=== PATIENT | male | born 1980 | race Caucasian/White ===

== ENCOUNTER 2022-10-19 11:52 | Emergency (ER) | payer MEDICAID, SELFPAY ==
[2022-10-19 11:58] VITALS: BP 136/84; PULSE 67; RESP 18; TEMP 36.6; O2SAT 97; BMI 40.7
--- NOTE | 2022-10-19 12:50 | CRLHL7_ITS ---
For Patients: As a result of the Century Cures Act, medical imaging exams and procedure reports are released immediately into your electronic medical record. You may view this report before your referring provider. If you have questions, please contact your health care provider. Indication: Anterior knee pain Comparison: None available. Technique: Standing AP, lateral, and sunrise views of the left knee were obtained Findings: There is no displaced fracture or dislocation. There is mild loss of medial compartmental joint space with minimal tibial spine spurring. The soft tissues are unremarkable. Impression: Mild tricompartmental degenerative changes worse in the medial compartment. Otherwise, no evidence of acute osseous abnormality. Dictated by Gustavo Scruggs MD @ 10/19/2022 2:05:09 PM (Electronically Signed)
--- NOTE | 2022-10-19 12:51 | ED.GENADULT ---
HPI - General Adult General Chief complaint: Extremity Pain/Injury, Lower Stated complaint: Injured LT knee Time Seen by Provider: 10/19/22 12:02 History of Present Illness HPI narrative: This 42-year-old male comes in reporting left knee pain. He states that he has a history of knee pain and had his ACL repaired on the right knee many years ago. He also reports some tendinitis in his Achilles tendons related to fluoroquinolones use in the past. He does not report any particular injury event or strenuous activity to bring on this pain. He states that he awoke for 5 days ago after sleeping on his side and had rather sudden onset of severe pain in the left knee. He does not report any instability or catching or locking. He reports pain especially when ambulating down stairs. Related Data Home Medications Medication Instructions Recorded Confirmed ferrous sulfate 325 mg (65 mg 325 mg PO DAILY 10/19/22 10/19/22 iron) tablet (FeroSul) gabapentin 100 mg capsule 100 mg PO DAILY 10/19/22 10/19/22 metoprolol succinate 100 mg 100 mg PO DAILY 10/19/22 10/19/22 tablet,extended release 24 hr rizatriptan 5 mg tablet 5 mg PO Q2H PRN migraine 10/19/22 10/19/22 Previous Rx's Medication Instructions Recorded hydrocodone 5 mg-acetaminophen 325 1 tab PO Q4-6H PRN pain #10 tabs 10/19/22 mg tablet Allergies Allergy/AdvReac Type Severity Reaction Status Date / Time banana Allergy Mild Anaphylaxis Verified 10/19/22 12:09 levofloxacin [From Levaquin] Allergy Mild tendon Verified 10/19/22 12:09 disinageration mold Allergy Mild Anaphylaxis Verified 10/19/22 12:09 Penicillins Allergy Mild Anaphylaxis Verified 10/19/22 12:09 Review of Systems Status of ROS: Reports: 10 or more systems reviewed and unremarkable except as noted in History and below Narrative: Constitutional: No fevers, no weight gain or loss. Eyes: No discharge. No vision changes. HENT: No congestion, no sore throat, no ear pain. Cardiovascular: No chest pain, no palpitations. Respiratory: No shortness of breath, no wheezes, no cough. Gastrointestinal: No abdominal pain, no vomiting, no diarrhea. Genitourinary: No dysuria, no hematuria. Musculoskeletal: Normal range of motion. Left knee pain as described above. Skin: No rashes, no pruritis. Neurological: No dizziness, weakness, sensory change, speech change. Endo/Heme/Allergies: No bruising or bleeding. No polydipsia. Pysch: no suicidality, no anxiety, no insomnia. All other systems reviewed and are negative. Exam Narrative: Exam Narrative: Constitutional: Well-developed, well-nourished, no acute distress. HEENT: Normocephalic, atraumatic. Neck: Normal range of motion. Nontender. Supple. Heart: Regular. No murmurs. Normal rate. Intact distal pulses. Lungs: Clear to auscultation. No chest discomfort. No wheezes, rhonchi, or rales. Abdomen: Normal bowel sounds. Nontender. No rebound tenderness. Genitalia: Deferred. Back: No midline tenderness. Normal range of motion. Extremities: Normal range of motion. Left knee shows no sign of ligament instability. Marshall's test and Jyoti's test are negative. He has tenderness when moving his patella when fully extended and relaxed. He reports more exquisite tenderness when palpating over the patella tendon. Skin: Intact. No rash. Warm. No erythema or pallor. Neurologic: No altered sensation. No weakness. Alert and oriented. Psychiatric: No suicidality. No anxiety or depression. No insomnia. Nursing notes and vitals signs are reviewed. Const: Vital Signs, click to edit/add: Vital Signs - 24 hr 10/19/22 11:58 Temperature 97.9 F Pulse Rate [Right Pulse Oximeter] 67 Respiratory Rate 18 Blood Pressure [Ri ght Upper Arm] 136/84 Pulse Oximetry 97 Oxygen Delivery Me thod Room Air Course Vital Signs Vital signs: Initial Vital Signs Temperature 97.9 F 10/19/22 11:58 Temperature Source Temporal Artery Scan 10/19/22 11:58 Pulse Rate 67 10/19/22 11:58 Respiratory Rate 18 10/19/22 11:58 Blood Pressure 136/84 10/19/22 11:58 Blood Pressure Mean 101 10/19/22 11:58 Blood Pressure Position Sitting 10/19/22 11:58 Pulse Oximetry 97 10/19/22 11:58 Oxygen Delivery Method Room Air 10/19/22 11:58 Vital Signs Temperature 97.9 F 10/19/22 11:58 Pulse Rate 67 10/19/22 11:58 Respiratory Rate 18 10/19/22 11:58 Blood Pressure 136/84 10/19/22 11:58 Pulse Oximetry 97 10/19/22 11:58 Oxygen Delivery Method Room Air 10/19/22 11:58 Temperature 97.9 F 10/19/22 11:58 Pulse Rate 67 10/19/22 11:58 Respiratory Rate 18 10/19/22 11:58 Blood Pressure 136/84 10/19/22 11:58 Pulse Oximetry 97 10/19/22 11:58 Oxygen Delivery Method Room Air 10/19/22 11:58 Medical Decision Making MDM Narrative Medical decision making narrative: This patient comes in with pain in his left knee. There was no particular injury event however he does have history of tendinopathy that he attributes to prior use of fluoroquinolones. His knee exam is normal regarding ligament stability and no sign of effusion. His range of motion is intact. He is able to ambulate normally. He does complain of pain in the anterior knee and also just medial to the patella. He has tenderness when I palpate lightly over the patella tendon. X-ray imaging is obtained and shows no acute findings. There is some mild degenerative change. There is no calcification noted of the patella tendon or the quadriceps tendon. I recommended the patient follow-up with orthopedic clinic for further evaluation and treatment. Arrangements are made for this appointment by registration staff. Patient did receive a few tablets of [place] as he states that he is not to be taking NSAIDs or steroids. Imaging Data XR L Knee: Radiologist's impression: Mild tricompartmental degenerative changes worse in the medial compartment. Otherwise, no evidence of acute osseous abnormality. Discharge Plan Discharge Clinical Impression: Anterior knee pain Patient Disposition: Home, Self-Care Condition: Unchanged Additional Instructions: Activity as tolerated. Take medication as needed and directed. Follow up with orthopedic clinic as scheduled. Prescriptions: New hydrocodone-acetaminophen 5-325 mg tablet 1 tab PO Q4-6H PRN (Reason: pain) Qty: 10 0RF No Action metoprolol succinate 100 mg tablet extended release 24 hr 100 mg PO DAILY gabapentin 100 mg capsule 100 mg PO DAILY ferrous sulfate [FeroSul] 325 mg (65 mg iron) tablet 325 mg PO DAILY rizatriptan 5 mg tablet 5 mg PO Q2H PRN (Reason: migraine) Follow Up/Referrals: PRATEEK ROBERTS DO [Primary Care Provider] - Stand Alone Forms: MyHealth Info Instructions
== END 2022-10-19 14:35 | disposition home or self-care (01) ==
PROVIDERS: Emergency Provider Emergency Medicine Emergency Medical Services; PCP Student in an Organized Health Care Education/Training Program
DX: M25.562 Pain in left knee (principal)
CPT/HCPCS: 73562; 99283; 99284

== ENCOUNTER 2023-03-03 11:15 | Outpatient (RCR) | payer MEDICAID, SELFPAY ==
--- NOTE | 2022-11-06 14:19 | PT.OPEX ---
PT [place] Outpatient Eval PT [facility] Outpatient Eval Start: 11/06/22 08:52 Freq: Status: Active Protocol: Document 11/06/22 08:52 HN (Rec: 11/06/22 14:09 HN [id number]) E-signed By Mindi Feldman DPT Physical Therapy Outpatient Evaluation Insurance Information Recert Due Date 02/03/23 Insurance Name Medicaid Insurance Information/Comments [facility] Medicaid Plan Medical Diagnosis M76. 52 for Patellar tendinitis, left knee [id number] primary osteoarthritis, left knee M22. 8X2 Other disorders of patella, left knee- Treating Diagnosis M25. 562 Pain in left knee LCL sprain/patellofemoral pain syndrome Referring MD Nilesh Henriquez MD Subjective Subjective Patient is a 42 year old male with left knee pain that began patient reports 3 week ago while sleeping. Patient reports pain was intense and sharp to start, went ED. Patient reports pain has stayed the same since initial onset not improved or worsened . Patient reports knee pain is diffuse with increased tenderness along medial and lateral joint lines, and quad insertion. Aggravating factors: sitting for prolonged time >10-15 minutes, standing >1-3 minutes, walking short distances, stairs Easing Factors: Tylenol, gabapentin, opiates, ICE/ ELEVATE, wearing brace Prior level of function: independent and unlimited wtih all ADLs and IADLs Current limitations: sitting for prolonged time >10-15 minutes, standing >1-3 minutes, walking short distances, stairs Red flags: denies hx of cancer , recent infection, shoulder arm, wrist and neck, bowel/ bladder changes Imaging: XR L Knee, Radiologist's impression: Mild tricompartmental degenerative changes worse in the medial compartment, Otherwise, no evidence of acute osseous abnormality. 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 Enjoys hiking, backpacking, programming, has a trip [place] [facility] months. Goal: return to walking/ standing/ascending and descending stairs, return to previous level of activity standing, walking, 3 months in [place] [facility], returning to biking Pain Comments Worst: 04/28 Current Work Status Unemployed Occupation Currently unemployed Precautions Therapy Limitations/Systems Review Not Limited Objective Other/Pertinent Objective Range of motion (degrees): Hip range of motion is grossly intact bilaterally Knee flexion: 124L/ 117 R Knee extension: 0L/lacking 4 R Manual muscle testing: Hip flexion: 3/5 L , 5/5 R Hip abduction: 5/5 L , 5/5 R Hip adduction: 3/5 L , 5/5 R Knee extension: 3+/5 L with increased pain , /5 R Knee flexion: 3/5 L with increased pain , 5/5 R Ankle DF : 4/5 L , 5/5 R Ankle PF: 4/5 L , 5/5 R Special tests: Anterior drawer: negative bilaterally Posterior drawer: negative bilaterally Valgus: negative for increased laxity with increased pain Varus: negative for increased laxity with increased pain Patellar grind: negative Squat: decreased range of motion, increased pain, no obvious knee instability Sensation/Reflexes: patient denies any changes in sensation Patellar mobility: normal with increased pain with medial patellar glides Palpation: increased tenderness along MCL/LCL, quad tendon insertion, with reports of increased tenderness with quadriceps muscle belly Functional Test Performed & Score KOOS, JR. Score: 20 / 28, Interval Score: 36.931 / 100 Assessment Assessment/Impression Patient is a 42 year old with complaints of left knee pain after waking up in the middle of the night with significant pain. Patient demonstrates pain with end range knee ROM, decreased hip and knee strength, increased pain consistent with patellofemoral pain syndrome with potential contributions from MCL/LCL sprain. The impairments impact the patient's prolonged sitting, standing, and ambulation, stair navigation and participation in ADLs and IADLs. Patient will benefit from skilled physical therapy to address the impairments and activity limitations listed above. Prognostic factors include patient's motivation, young age, and relatively few comorbidities Primary Functional Limitations sitting, standing, and ambulation, stair navigation and participation in ADLs and IADLs Plan of Care Rehabilitation Potential Good Rehabilitation Potential Comments Patient motivation, age, few comorbidities Physical Therapy Goals Short term goals ( 6 weeks 12/18) 1. Patient will demonstrate knee range of motion of 0-125 with no incraese in pain in order to normalize gait mechanics and to perform ADLs and IADLs. 2. Patient will demonstrate MMT of 4/5 in left hip and knee in order to demonstrate improved tolerance with walking and stair navigation 3. Patient will report <5/10 pain at worst in order to demonstrate decreased pain and disability related to symptoms. 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 Patient will demonstrate KOOS JR score improvement of 60/100 or greater interval score to demonstrate decrease pain and disability related to knee symptoms 2. Patient will report <3/10 pain in order to demonstrate decreased pain and disability related to symptoms 3. Patient will demonstrate independence with HEP in order to decrease knee pain and improve knee strength 4. Patient will tolerate standing >15 minutes with no increase in pain order to complete ADLs. 5. Patient will tolerate walking >30 minutes with no increase in pain order to complete ADLs 6. Patient will ascend/descend a flight of stairs with no increase in pain in order to navigate home safely. Coordination/Communication With Referral Source Treatment Plan/Direct Interventions Electrical Stimulation,Gait Training,Ice/Cold/ Vasopneumatic,Joint Mobilization,Manual Therapy, Neuromuscular Re-ed,Self-Care/ Home Management,Therapeutic Activities,Therapeutic Exercises Frequency/Duration 1-2x/week for 10-12 weeks Patient Will Be Discharged From Therapy Completion of LTG(s),Skills Plateau,Independent w/HEP Evaluation Billing Untimed Code Treatment Minutes 20 Complexity Low Certification Information Initial Certification Date 11/06/22 Ending Certification Date 02/03/23 Provider Signature Shows Agreement With POC & Medical Necessity Physician Signature & Date Requested Please Sign/Date Here Physician Comment/Change : Physician NPI Number #
--- NOTE | 2023-02-04 15:31 | PT.OPDNX ---
PT [place] Outpatient Daily Note PT [facility] Outpatient Daily Note Start: 11/06/22 08:52 Freq: Status: Active Protocol: Document 02/03/23 09:50 HN (Rec: 02/03/23 14:45 HN [id number]) E-signed By Mindi Feldman DPT PT [facility] Daily Progress Note Visit Information Note Type Daily Note,Recert/Progress Note Visit Number [id number] Insurance Authorized Visits Eval and treat Insurance Information Recert Due Date 02/03/23 Insurance Name Medicaid Insurance Information/Comments [facility] Medicaid Plan Medical Diagnosis Updated referral 12/30/22 M76. 52 for Patellar tendinitis, left knee [id number] primary osteoarthritis, left knee M22. 8X2 Other disorders of patella, left knee- M25. 561 pain in right knee Z98.890 Other specified postprocedural states Treating Diagnosis Updated plan of care 12/30/22 M25. 562 Pain in left knee M25. 561 pain in right knee Referring MD Nilesh Henriquez MD Subjective Subjective Patient reports left knee is feeling better, no longer impedes functional day to day, not restricting activity, right knee pain had increased pain after last session, gastroc and hamstring. Patient reports pain increased for 8 days then subsided. Reports R knee is 5/10 today at beginning of session Pain Comments R knee 5/10 Preferred Name Abdulkadir Home Exercise Home Exercise Comments [employer]: [id number] updated 01/13/23 - Supine Active Straight Leg Raise - 1 x daily - 7 x weekly - 2 sets - 10 reps - Gastroc Stretch on Wall - 1 x daily - 7 x weekly - 3 reps - 30 seconds hold - Supine Bridge - 1 x daily - 7 x weekly - 2 sets - 10 reps - Supine Hamstring [place] Ball Curls/Dynamic Mobilization - 1 x daily - 7 x weekly - 2 sets - 10 reps - Side Stepping with Resistance at Feet - 1 x daily - 3-4 x weekly - 2 sets - 5 reps - Sit to Stand - 1 x daily - 3-4 x weekly - 2 sets - 10 reps - Full Leg Press - 1 x daily - 3-4 x weekly - 2 sets - 10 reps - Hamstring Curl with Weight Machine - 1 x daily - 3-4 x weekly - 2 sets - 10 reps Objective Other/Pertinent Objective Manual muscle testing: Hip flexion: 5/5 L , 5/5 R Hip abduction: 5/5 L , 5/5 R Hip adduction: 5/5 L , 5/5 R Knee extension: 5/5 L , 5/5 Knee flexion: 5/5 L , 5/5 R Ankle DF : 5/5 L , 5/5 R Ankle PF: 4/5 L , 5/5 R Functional Test Performed & Score KOOS, JR. Score: , Interval Score: 65.994 / 100 Left knee KOOS, JR. Score: , Interval Score: 47.487 / 100 Right knee Patient Instructed in Risks/Benefits Yes Therapeutic Exercise Therapeutic Exercise Minutes (minutes) 25 Therapeutic Exercise: To Restore To decrease pain and improve Functional Status hip and left knee strength, patient completed the exercises listed below. Assessed strength (see objective measures -Nustep x6 minutes - Single leg R Leg press - 2x30# - Hamstring set 2x10 5 second hold R - Hamstring curl 2x10 Red theraband R Manual Therapy Techniques Manual Therapy Minutes (minutes) 16 Manual Therapy Techniques Completed cupping for R posterior knee hamstring and gastroc with good tolerance, provided soft tissue mobilization to R hamstring and gastroc. Patient reports significant decrease in pain. Treatment Minutes Timed Code Treatment Minutes 41 Total Treatment Time 41 Billing Units Manual Therapy Units 1 Therapeutic Exercise Units 2 Assessment/Impression Assessment/Impression Patient is 42 year old with bilateral knee pain. Patient reports significant improvement L knee, pain is manageable, no longer impacting day to day. Patient continues to demonstrate increased pain and disability related to R knee. Patient's R knee was added to plan of care 4 weeks ago. Patient's impairments continue to impact prolonged standing, walking, curb/stair/incline navigation. Patient continues to benefit from skilled physical therapy to address the impairments and activity limitations listed below. Plan of Care Physical Therapy Goals Short term goals ( 6 weeks 12/18) 1. Patient will demonstrate bilateral knee range of motion of 0-125 with no increase in pain in order to normalize gait mechanics and to perform ADLs and IADLs. MET 2. Patient will demonstrate MMT of 4/5 in left hip and knee in order to demonstrate improved tolerance with walking and stair navigation. MET 3. Patient will report <5/10 pain at worst in order to demonstrate decreased pain and disability related to symptoms. Left knee 6/10, Right 7/10 ONGOING residential goals (12 weeks, ) 1. Patient will demonstrate KOOS JR score improvement of 60/100 or greater interval score to demonstrate decrease pain and disability related to knee symptoms (L knee met, R knee making good progress) 2. Patient will report <3/10 pain in order to demonstrate decreased pain and disability related to symptoms ONGOING 3. Patient will demonstrate independence with HEP in order to decrease knee pain and improve knee strength MET 4. Patient will tolerate standing >15 minutes with no increase in pain order to complete ADLs. 3/10 at worst 20 minutes 5. Patient will tolerate walking >30 minutes with no increase in pain order to complete ADLs MAKING GOOD PROGRESS 6. Patient will ascend/descend a flight of stairs with no increase in pain in order to navigate home safely. MET Daily Plan of Care Continue per POC Daily Plan of Care Comments 1x/week for up to 6 visits Recertification Information Initial Certification Date 02/03/23 Recertification Start Date 02/03/23 Recertification Due Date 03/17/23 Reasons to Continue Skilled Therapy Added R knee to plan of care 4 weeks ago, patient's L knee symptoms have improved significantly, however R knee symptoms are limiting activities. Patient makes appropriate progress, responds well to PT, and is consistent to home program Rehabilitation Potential Good Continued Plan of Care and Interventions Continued focus on therapeutic exercises and functional activities with manual as needed to improve activity tolerance. Provider Signature Shows Agreement With POC & Medical Necessity
== END 2023-03-19 12:54 | disposition home or self-care (01) ==
PROVIDERS: PCP Student in an Organized Health Care Education/Training Program; Visit Provider Orthopaedic Surgery Sports Medicine
DX: M17.12 Unilateral primary osteoarthritis, left knee (principal); M76.52 Patellar tendinitis, left knee; M22.8X2 Other disorders of patella, left knee; M25.561 Pain in right knee; M25.562 Pain in left knee; G89.29 Other chronic pain; Z98.890 Other specified postprocedural states; Z51.89 Encounter for other specified aftercare
CPT/HCPCS: 97110; 97140; 97161; 97530

== ENCOUNTER 2023-07-20 13:15 | Emergency (ER) | payer MEDICAID, SELFPAY ==
[2023-07-20 14:00] VITALS: BP 162/84; PULSE 76; RESP 22; TEMP 36.6; O2SAT 96; BMI 42.8
--- NOTE | 2023-07-20 14:18 | CRLHL7_ITS ---
For Patients: As a result of the Century Cures Act, medical imaging exams and procedure reports are released immediately into your electronic medical record. You may view this report before your referring provider. If you have questions, please contact your health care provider. INDICATION: Abdominal pain. TECHNIQUE: CT abdomen and pelvis acquired with 146 cc Isovue 370 IV contrast. COMPARISON: None. FINDINGS: Lower chest: Unremarkable. Liver: Unremarkable. Normal in size and attenuation. No suspicious masses. Gallbladder and bile ducts: Unremarkable. No stones or inflammation. No biliary dilatation. Pancreas: Unremarkable. No mass or inflammation. Spleen: Unremarkable. Normal in size. No masses. Adrenal glands: Unremarkable. No nodules. Kidneys: Unremarkable. No suspicious masses, stones, or hydronephrosis. GI tract: Unremarkable. Normal in caliber. No sign of mass or inflammation. Normal appendix. Vasculature: Abdominal aorta is normal in caliber. Mesenteric arteries are patent. Lymph nodes: No lymphadenopathy. Peritoneum/Abdominal Wall: Unremarkable. No sign of mass or infiltration. No free air or significant free fluid. Pelvis: Unremarkable. Bones: Degenerative disc spondylosis at L5-S1. IMPRESSION: Unremarkable CT of the abdomen and pelvis. No findings to explain abdominal pain. Please note that all CT scans at this facility use dose modulation, iterative reconstruction, and/or weight-based dosing when appropriate to reduce radiation dose to as low as reasonably achievable. Dictated by Ashwin De Santiago MD @ 07/20/2023 3:34:40 PM (Electronically Signed)
--- NOTE | 2023-07-20 15:17 | ED_ITS ---
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 The pain is proximally 6/10 without radiation. He has had no fevers no chills no night sweats. He has no rectal pain. He does pass bright red blood upon arriving in the emergency room as well. Patient has had no similar symptoms previously and I do not believe he has had a colonoscopy. He takes no medications regularly and is not on any blood thinners or anti-platelet agents. A he has had no fevers no chills no reflux symptoms no cough no shortness of breath. Related Data Home Medications Medication Instructions Recorded Confirmed ferrous sulfate 325 mg (65 mg 325 mg PO DAILY 10/19/22 10/21/22 iron) tablet (FeroSul) gabapentin 100 mg capsule 100 mg PO DAILY 10/19/22 10/21/22 metoprolol succinate 100 mg 100 mg PO DAILY 10/19/22 10/21/22 tablet,extended release 24 hr rizatriptan 5 mg tablet 5 mg PO Q2H PRN migraine 10/19/22 10/21/22 Previous Rx's Medication Instructions Recorded hydrocodone 5 mg-acetaminophen 325 1 tab PO Q4-6H PRN pain #10 tabs 10/19/22 mg tablet Allergies Allergy/AdvReac Type Severity Reaction Status Date / Time banana Allergy Mild Anaphylaxis Verified 07/20/23 15:23 levofloxacin [From Levaquin] Allergy Mild tendon Verified 07/20/23 15:23 disinageration mold Allergy Mild Anaphylaxis Verified 07/20/23 15:23 Penicillins Allergy Mild Anaphylaxis Verified 07/20/23 15:23 amoxicillin Allergy Anaphylaxis Verified 07/20/23 15:23 ciprofloxacin Allergy Verified 07/20/23 15:23 Molds & Smuts Allergy Uncoded 07/20/23 15:23 Review of Systems Status of ROS: Reports: 10 or more systems reviewed and unremarkable except as noted in History and below [facility] Medical History Osteochondritis dissecans of right ankle ?M93.271 - Osteochondritis dissecans, right ankle and joints of right foot (ICD-10) Achilles tendinitis of both lower extremities ?M76.61 - Achilles tendinitis, right leg (ICD-10) ?M76.62 - Achilles tendinitis, left leg (ICD-10) Sacroiliac joint pain ?M53.3 - Sacrococcygeal disorders, not elsewhere classified (ICD-10) Palpitations ?R00.2 - Palpitations (ICD-10) Abdominal pain ?R10.9 - Unspecified abdominal pain (ICD-10) Surgical History History of repair of anterior cruciate ligament of right knee ?Z98.890 - Other specified postprocedural states (ICD-10) Social History Smoking Status: Never smoker Do you use any of these nicotine containing products: None Second hand tobacco smoke exposure: No How often do you have a drink containing alcohol: monthly or less How often do you have six or more drinks on one occasion: Never AUDIT-C Alcohol total score: 1 Non-prescribed substance use: marijuana (any form) Exam Narrative: Exam Narrative: EXAM GENERAL: Patient appears comfortable and well. EYES: No scleral icterus. ENT: Tympanic membranes and oropharynx normal. THYROID: no thyroid nodules or thyromegaly. LYMPH: No supraclavicular or cervical lymphadenopathy. SKIN: Visible skin seen during exam normal or with benign process only. EXT: No dependent lower extremity pedal edema. HEART: Regular rate and rhythm with no murmurs, rubs, or gallops. LUNGS: Clear to auscultation bilaterally with no crackles or wheezes. ABD: Soft, non tender, non distended. PSYCH: Good eye contact, speech is not pressured. Const: Vital Signs, click to edit/add: Vital Signs - 24 hr 07/20/23 14:00 07/20/23 15:29 07/20/23 16:50 Temperature 97.8 F Pulse Rate [Pulse Oximeter] 76 91 82 Respiratory Rate 22 24 Blood Pressure [Ri ght Upper Arm] 162/84 H 164/81 H 146/76 H Pulse Oximetry 96 96 97 Oxygen Delivery Me thod Room Air Room Air Room Air Course Course ED Course: CT of the abdomen pelvis CBC INR basic metabolic panel amylase pending. 1. L of normal saline given. Reevaluation(s) Reevaluation #1: Patient's labs are stable his CT is unremarkable however he still having exquisite will left lower quadrant pain in his aggressively passing bright red blood per rectum. Vital Signs Vital signs: Initial Vital Signs Temperature 97.8 F 07/20/23 14:00 Temperature Source Temporal Artery Scan 07/20/23 14:00 Pulse Rate 76 07/20/23 14:00 Respiratory Rate 22 07/20/23 14:00 Blood Pressure 162/84 H 07/20/23 14:00 Blood Pressure Mean 110 H 07/20/23 14:00 Pulse Oximetry 96 07/20/23 14:00 Oxygen Delivery Method Room Air 07/20/23 14:00 Vital Signs Temperature 97.8 F 07/20/23 14:00 Pulse Rate 76 07/20/23 14:00 Respiratory Rate 22 07/20/23 14:00 Blood Pressure 162/84 H 07/20/23 14:00 Pulse Oximetry 96 07/20/23 14:00 Oxygen Delivery Method Room Air 07/20/23 14:00 Temperature 97.8 F 07/20/23 14:00 Pulse Rate 82 07/20/23 16:50 Respiratory Rate 07/20/23 15:29 Blood Pressure 146/76 H 07/20/23 16:50 Pulse Oximetry 97 07/20/23 16:50 Oxygen Delivery Method Room Air 07/20/23 16:50 MDM - Nausea/Vomiting/Diarrhea Lab Data Labs: Lab Results 07/20/23 07/20/23 Range/Units 14:55 16:55 WBC 11.26 H 12.17 H (4.50-11.00) K/uL RBC 5.58 5.54 (4.30-5.90) m/uL Hgb 15.1 15.1 (13.5-17.5) gm/dL Hct 44.4 43.9 (37.0-53.0) % MCV 80 79 L (80-100) fL MCH 27 27 (26-34) pg MCHC 34 34 (32-36) gm/dL RDW Coeff of Donnell 13.1 13.2 (11.5-15.5) % Plt Count 243 235 (140-440) K/uL Neut % (Auto) 87.0 H 87.5 H (42.0-72.0) % Lymph % (Auto) 8.0 L 7.9 L (20-44) % [place] % (Auto) 4.4 4.2 (0.0-11.0) % Eos % (Auto) 0.1 0.0 (0.0-7.0) % Baso % (Auto) 0.1 0.2 (0.0-3.0) % Neut # (Auto) 9.80 H 10.60 H (1.7-7.0) K/uL Lymph # (Auto) 0.90 1.00 (0.90-2.90) K/uL [place] # (Auto) 0.50 0.50 (0.00-0.90) K/UL Eos # (Auto) 0.00 0.00 (0.00-0.50) K/uL Baso # (Auto) 0.00 0.00 (0.00-0.30) K/uL Abs Immat Gran (auto) 0.00 0.00 (0.00-0.30) K/uL Imm/Tot Granulo (auto) 0.4 0.2 % INR 0.91 (0.91-1.10) Sodium 137 (135-149) mmol/L Potassium 3.9 (3.6-5.1) mmol/L Chloride 104 (96-114) mmol/L Carbon Dioxide 20 (20-32) mmol/L Anion Gap 13 (7-15) mEq/L BUN 12 (5-24) mg/dL Creatinine 0.8 (0.5-1.5) mg/dL Estimated Creat Clear 125.47 Estimated GFR 114 ml/min Glucose 120 H (60-115) mg/dL Calcium 9.0 (8.4-10.6) mg/dL Total Bilirubin 0.3 (0.1-1.5) mg/dL AST 37 H (12-35) U/L ALT 34 (4-50) U/L Alkaline Phosphatase 99 (40-150) U/L Total Protein 8.0 (6.0-8.3) g/dL Albumin 4.8 (3.3-5.0) g/dL Amylase 84 (18-89) U/L SARS-CoV-2 (PCR) Negative SARS-CoV-2 (Negative) Influenza Type A (PCR) Negative PCR FLU A (Negative) Influenza Type B (PCR) Negative PCR FLU B (Negative) RSV (PCR) Negative PCR RSV (Negative) Discharge Plan Discharge Clinical Impression: BRBPR (bright red blood per rectum) Patient Disposition: Home, Self-Care Condition: Stable Instructions: Rectal Bleeding (ED) Additional Instructions: Please follow-up with your primary care clinic, would recommend follow-up colonoscopy to evaluate your symptoms. Return at any time for more significant bleeding or other new concerns. Prescriptions: No Action metoprolol succinate 100 mg tablet extended release 24 hr 100 mg PO DAILY gabapentin 100 mg capsule 100 mg PO DAILY ferrous sulfate [FeroSul] 325 mg (65 mg iron) tablet 325 mg PO DAILY rizatriptan 5 mg tablet 5 mg PO Q2H PRN (Reason: migraine) hydrocodone-acetaminophen 5-325 mg tablet 1 tab PO Q4-6H PRN (Reason: pain) Qty: 10 0RF Follow Up/Referrals: PRATEEK ROBERTS DO [Primary Care Provider] - Stand Alone Forms: MyHealth Info Instructions
[2023-07-20 15:29] VITALS: BP 164/81; PULSE 91; RESP 24; O2SAT 96
[2023-07-20 15:31] LABS: Basophils Percent Auto 0.1 % (0.0-3.0); Eosinophils Percent Auto 0.1 % (0.0-7.0); Hematocrit 44.4 % (37.0-53.0); Hemoglobin* 15.1 gm/dL (13.5-17.5); Immature Granulocytes Pct Auto 0.4 %; Mean Corpuscular HGB Conc 34 gm/dL (32-36); Mean Corpuscular Hemoglobin 27 pg (26-34); Mean Corpuscular Volume 80 fL (80-100); Monocytes Percent Auto 4.4 % (0.0-11.0); Platelet Count* 243 K/uL (140-440); RDW Coefficient of Variation % 13.1 % (11.5-15.5); Red Blood Count 5.58 m/uL (4.30-5.90); White Blood Count* 11.26 K/uL (4.50-11.00)
[2023-07-20 15:33] LABS: Albumin* 4.8 g/dL (3.3-5.0); Chloride* 104 mmol/L (96-114); Slide Review Reflex No
[2023-07-20 15:34] LABS: Potassium* 3.9 mmol/L (3.6-5.1); Sodium* 137 mmol/L (135-149)
[2023-07-20 15:36] LABS: Amylase* 84 U/L (18-89); Anion Gap 13 mEq/L (7-15); Bilirubin Total* 0.3 mg/dL (0.1-1.5); Carbon Dioxide* 20 mmol/L (20-32); Creatinine* 0.8 mg/dL (0.5-1.5); Est. Creatinine Clearance* 125.47; Estimated Glomerular Filt Rate 114 ml/min
[2023-07-20 15:37] LABS: Alanine Aminotransferase* 34 U/L (4-50); Alkaline Phosphatase* 99 U/L (40-150); Aspartate Amino Transferase* 37 U/L (12-35); Blood Urea Nitrogen* 12 mg/dL (5-24); Glucose* 120 mg/dL (60-115)
[2023-07-20 15:39] LABS: INR 0.91 (0.91-1.10); Prothrombin Time 12.8 Seconds
[2023-07-20 16:00] LABS: PCR FLU A Negative PCR FLU A (Negative); PCR FLU B Negative PCR FLU B (Negative); PCR RSV Negative PCR RSV (Negative)
[2023-07-20 16:02] LABS: SARS PCR* Negative SARS-CoV-2 (Negative)
[2023-07-20 16:50] VITALS: BP 146/76; PULSE 82; O2SAT 97
[2023-07-20 17:04] LABS: Basophils Percent Auto 0.2 % (0.0-3.0); Hematocrit 43.9 % (37.0-53.0); Hemoglobin* 15.1 gm/dL (13.5-17.5); Immature Granulocytes Pct Auto 0.2 %; Lymphocytes Percent Auto 7.9 % (20-44); Mean Corpuscular HGB Conc 34 gm/dL (32-36); Mean Corpuscular Hemoglobin 27 pg (26-34); Mean Corpuscular Volume 79 fL (80-100); Monocytes Percent Auto 4.2 % (0.0-11.0); Neutrophils Percent Auto 87.5 % (42.0-72.0); Platelet Count* 235 K/uL (140-440); RDW Coefficient of Variation % 13.2 % (11.5-15.5); Red Blood Count 5.54 m/uL (4.30-5.90); White Blood Count* 12.17 K/uL (4.50-11.00)
[2023-07-20 17:18] LABS: Slide Review Reflex No
== END 2023-07-20 17:44 | disposition home or self-care (01) ==
PROVIDERS: Internal Medicine; Emergency Provider Emergency Medicine; PCP Student in an Organized Health Care Education/Training Program
DX: K62.5 Hemorrhage of anus and rectum (principal)
CPT/HCPCS: 36415; 74177; 80053; 81003; 82150; 85025; 85610; 87631; 99283; 99284; Q9967

== ENCOUNTER 2024-06-08 14:14 | Outpatient (CLI) | payer MEDICAID, SELFPAY ==
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
--- OUTSIDE RECORDS SUMMARY | 2024-06-08 14:18 | XMS_ITS | Clinical Summary ---
Author Organization [facility] Address [address] [place] [address] Care Team Providers Care Substation Operator Transforming Name Role Phone Found, No Pcp MD Primary Care Provider Unavailab le Source Comments You are receiving this document as you are listed as the primary care provider,follow-up provider, or the patient has been referred to you for consultation.This is in compliance with the Medicare and[facility] Hospitalcaid EHR Incentive Program,which states Providers who transition their patient to another setting of careor provider of care or refers their patient to another provider of care shouldprovide summary care record for each transition of care or referral. [facility] Allergies Active Allergy Reactions Criticality Noted Date Comments Penicillins Anaphylaxis High 03/31/2016 Medications Medication Sig Dispensed Refills Start Date End Date Status citalopram (CELEXA) 10 MG tabletIndications:PTSD (post-traumatic stress disorder) ([facility]C),Alcohol use disorder, mild, abuse Take 1 Tab by mouth daily. 30 Tab 11 03/31/2016 Active acamprosate (CAMPRAL) 333 MG tabletIndications:PTSD (post-traumatic stress disorder) (HRC),Alcohol use disorder, mild, abuse Take 2 Tabs by mouth three times a day. 180 Tab 11 03/31/2016 Active prazosin (MINIPRESS) 1 MG capsuleIndications:PTSD (post-traumatic stress disorder) (HRC),Alcohol use disorder, mild, abuse Take 1-2 Caps by mouth every evening. 60 Cap 11 03/31/2016 Active Active Problems Problem Noted Date Diagnosed Date Alcohol use disorder, mild, abuse 03/31/2016 PTSD (post-traumatic stress disorder) 03/31/2016 Chronic pain of right knee 03/31/2016 Social History Tobacco Use Types Packs/Day Years Used Date Smoking Tobacco: Never Smokeless Tobacco: Never Sex and Gender Information Value Date Recorded Sex Assigned at Not on file Gender Identity Not on file Sexual Orientation Not on file Last Filed Vital Signs Vital Sign Reading Time Taken Comments Blood Pressure 177/114 03/31/2016 2:19 PM CDT Pulse 88 03/31/2016 2:19 PM CDT Temperature - - Respiratory Rate - - Oxygen Saturation - - Inhaled Oxygen Concentration - - Weight - - Height - - Body Mass Index - - Plan of Treatment Health Maintenance Due Date Last Done Comments Hep C Screening (Preventive Services) 1981 HIV Screening (Preventive Services) 1997 Adult Preventive Visit 1999 DTaP/Tdap/Td (1 - Tdap) 2000 HepB (1) 2000 Cholesterol 2016 COVID-19 Vaccine (2023-2 5 season) 2024 Influenza (#1) 2024 Zoster/Shingles (1 of 2) 2031 HPV Vaccine Aged Out No longer eligi ble based on patient's age to complete this topic HepA Aged Out No longer eligi ble based on patient's age to complete this topic Hib Aged Out No longer eligi ble based on patient's age to complete this topic IPV (Polio) Aged Out No longer eligi ble based on patient's age to complete this topic Infant RSV Aged Out No longer eligi ble based on patient's age to complete this topic MCV4 Aged Out No longer eligi ble based on patient's age to complete this topic Pneumococcal Aged Out No longer eligi ble based on patient's age to complete this topic Care Teams Substation Operator Transforming Relationship Specialty Start Date End Date Found, No Pcp, [address] [place] [address] PCP - General 03/12/16
== END 2024-06-08 14:15 | disposition home or self-care (01) ==
LOC: NFLDREF 14:16
PROVIDERS: PCP Student in an Organized Health Care Education/Training Program; Visit Provider Registered Nurse
DX: R10.9 Unspecified abdominal pain (principal); M54.9 Dorsalgia, unspecified
CPT/HCPCS: 80048; 87086

== ENCOUNTER 2024-11-07 07:30 | Outpatient (RCR) | payer MEDICAID, SELFPAY ==
--- NOTE | 2024-07-25 09:52 | PT.OPEX ---
[facility] Outpatient Eval PT [facility] Outpatient Eval Start: 07/25/24 07:21 Freq: Status: Active Protocol: Document 07/25/24 07:22 CRP (Rec: 07/25/24 08:31 CRP [id number]) E-signed By Corbin Nolasco PT Physical Therapy Outpatient Evaluation Insurance Information Recert Due Date 10/23/24 Insurance Name Medicaid,[facility] Medical Diagnosis Lumbar Radiculopathy Referring MD Joselyn King, [employer]VIS[employer] Subjective Subjective April began having upper back pain after backpacking trip in April 2024. This initially was TL junction. Locked up in May which then began causing LBP. Pain just above SI joints/mid glute both sides with L more than R . Has attempted some stretching but it gets aggravated easily. Had some back pain in the past which exercise seemed to help. This time it has not helped. No pains down the leg. Low back can feel tingling sensation at times. 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 TL spine pain seems to come on with reaching and twisting. TL spine pain ranges 4-6/10. Sitting stays about 5/10. Sitting is most painful for his low back. Can walk up to 15 minutes. Walking does not necessarily help. Sleep is frequently waking him up. Tends to sleep on his back. TL spine pain is what wakes him up. Meds include muscle relaxer, Tylenol and has low number of pain meds. 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 MMT: L knee flex 3-/5. All other myotomes WNL Assessment Assessment/Impression Pt presents to the clinic with signs and sxs that suggest TL junction strain with poor tolerance to mechanical load as well as lumbar disc related disorders. Skilled PT is necessary to incorporate ther ex, nm natasha, manual therapy and pt education to decrease pain and improve functional mobility. Plan of Care Rehabilitation Potential Excellent Physical Therapy Goals 1. Pt will be independent with HEP in 8 weeks. 2. Pt will sit greater than 4 hours for work with 80% decrease in pain in 12 weeks. 3. 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 Coordination/Communication With Referral Source Treatment Plan/Direct Interventions Joint Mobilization,Manual Therapy,Neuromuscular Re-ed, Self-Care/Home Management, Therapeutic Activities, Therapeutic Exercises Frequency/Duration 1-2x/wk for 12 weeks Patient Will Be Discharged From Therapy Completion of LTG(s),Skills Plateau,Independent w/HEP, Independently Progressing Evaluation Billing Untimed Code Treatment Minutes 40 Complexity Moderate Certification Information Initial Certification Date 07/25/24 Ending Certification Date 10/23/24 Provider Signature Required Yes Provider Signature Shows Agreement With POC & Medical Necessity Physician NPI Number Write NPI# Here Physician Comment/Change : Physician Signature & Date Requested Please Sign/Date Here
== END 2025-01-25 11:56 | disposition home or self-care (01) ==
PROVIDERS: PCP Student in an Organized Health Care Education/Training Program; Visit Provider Registered Nurse
DX: M54.16 Radiculopathy, lumbar region (principal); M51.26 Other intervertebral disc displacement, lumbar region; Z51.89 Encounter for other specified aftercare
CPT/HCPCS: 97110; 97140; 97162; 97530

== ENCOUNTER 2025-03-16 08:30 | Outpatient (RCR) | payer MEDICAID, SELFPAY | END 2025-07-12 09:00 | disposition home or self-care (01) | PROVIDERS: PCP Student in an Organized Health Care Education/Training Program; Visit Provider Family Medicine | DX: M54.16 Radiculopathy, lumbar region (principal); M51.26 Other intervertebral disc displacement, lumbar region; Z51.89 Encounter for other specified aftercare | CPT/HCPCS: 97012; 97110; 97140; 97162 ==

== ENCOUNTER 2025-07-12 11:43 | Emergency (ER) | payer MEDICAID, SELFPAY ==
--- OUTSIDE RECORDS SUMMARY | 2025-07-12 11:45 | XMS_ITS | Clinical Summary ---
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 [facility] Allergies Active AllergyReactionsCriticalityNoted DateCommentsPenicillinsAnaphylaxisHigh 03/31/2016 Medications MedicationSigDispense QuantityRefillsLast FilledStart DateEnd DateStatus citalopram (CELEXA) 10 MG tablet Indications:PTSD (post-traumatic stress disorder) ([facility]C),Alcohol use disorder, mild, abuseTake 1 Tab by mouth daily. 30 Tab Active acamprosate (CAMPRAL) 333 MG tablet Indications:PTSD (post-traumatic stress disorder) (HRC),Alcohol use disorder, mild, abuseTake 2 Tabs by mouth three times a day. 180 Tab Active prazosin (MINIPRESS) 1 MG capsule Indications:PTSD (post-traumatic stress disorder) (HRC),Alcohol use disorder, mild, abuseTake 1-2 Caps by mouth every evening. 60 Cap Active Active Problems ProblemNoted DateDiagnosed DateAlcohol use disorder, mild, abuse03/31/2016PTSD (post-traumatic stress disorder)03/31/2016Chronic pain of right knee03/31/2016 Social History Tobacco UseTypesPacks/DayYears UsedDateSmoking Tobacco: NeverSmokeless Tobacco: NeverSex and Gender InformationValueDate RecordedSex Assigned at BirthNot on fileLegal VnyXopa9403/06/2016 2:44 PM CDTGender IdentityNot on fileSexual OrientationNot on file Last Filed Vital Signs Vital SignReadingTime TakenCommentsBlood [id number] 2:19 PM CDT [id number] 2:19 PM CDTTemperature--Respiratory Rate--Oxygen Saturation-- Inhaled Oxygen Concentration--Weight--Height--Body Mass Index-- Plan of Treatment Health MaintenanceDue DateLast DoneCommentsHep C Screening (Preventive Services) 1981HIV Screening (Preventive Services)1997Adult Preventive Visit 1999DTaP/Tdap/Td Vaccine (1 - Tdap)2000HepB Vaccine (1)2000 Zmbkaywltut88/14/2017COVID-19 Vaccine (1 - 2024- season)2025Influenza Vaccine (#1)2025Zoster/Shingles Vaccine (1 of 2)2031HPV Vaccine (No Doses Required)CompletedHepA VaccineAged OutNo longer eligible based on patient's age to complete this topicHib VaccineAged OutNo longer eligible based on patient's age to complete this topicIPV (Polio) VaccineAged OutNo longer eligible based on patient's age to complete this topicMCV4 VaccineAged OutNo longer eligible based on patient's age to complete this topicMeningococcal B VaccineAged OutNo longer eligible based on patient's age to complete this topic Pneumococcal VaccineAged OutNo longer eligible based on patient's age to complete this topic Care Teams Team MemberRelationshipSpecialtyStart DateEnd Date Found, No Pcp, [address] [place] [address] PCP - [facility]03/12/16
--- OUTSIDE RECORDS SUMMARY | 2025-07-12 11:45 | XMS_ITS | Clinical Summary ---
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 StatusAdei Adrián DOCHEMISTRYFinal Result Performing OrganizationAddressCity/State/ZIP CodePhone Number [employer] [facility] [address] [place] [address], [facility] [address] [place] [address] * LC HCV ANTIBODY RFX TO QUANT PCR (02/02/2023 3:33 PM CDT)ComponentValueRef RangeTest MethodAnalysis TimePerformed AtPathologist SignatureHCV AbNon ReactiveNon Larxdwuh01/21/2023 10:06 PM CDTLABCORP [facility] (CET)Specimen (Source)Anatomical Location / Laterality Collection Method / VolumeCollection TimeReceived TimeBloodBLOOD SPECIMEN / UnknownButterfly / Gxcldoo8802/02/2023 3:33 PM CDT02/02/2023 3:40 PM CDT Narrative [facility] ([facility]ET) - 02/06/2023 10:06 PM CDT Performed at: - [address] ??[id number] Hub Cutter: Bernabe Littlejohn MD, Phone: ??[phone] Authorizing ProviderResult TypeResult StatusAdei Adrián DOLABORATORYFinal Result Performing OrganizationAddressCity/State/ZIP CodePhone Number [facility] (CET) [address] [place] [address] * LC HIV-1/O/2, 4TH GENERATION (02/02/2023 3:33 PM CDT)ComponentValueRef Range Test MethodAnalysis TimePerformed AtPathologist SignatureHIV Scr 4th GenNon ReactiveNon Aksjtjmj19/20/2023 1:10 PM CDTLABCFIRST CARE HEALTH CENTER FOR ES[facility] TEST[facility] (CET)Comment: HIV Negative HIV-1/HIV-2 antibodies and HIV-1 p24 antigen were NOT detected. There is no laboratory evidence of HIV infection. Specimen (Source)Anatomical Location / LateralityCollection Method / Volume Collection TimeReceived TimeBloodBLOOD SPECIMEN / UnknownButterfly / Unknown 02/02/2023 3:33 PM CDT02/02/2023 3:40 PM CDT Narrative [facility] ([facility]) - 02/05/2023 1:10 PM CDT Performed at: [address] ??[id number] Hub Cutter: Bernabe Littlejohn MD, Phone: ??[phone] Authorizing ProviderResult TypeResult StatusAdei Adrián DOLABORATORYFinal Result Performing OrganizationAddressCity/State/ZIP CodePhone Number [facility] (CET) [address] [place] [address], from Last 3 Months or Most Recently Relevant to Health Maintenance Insurance * Guarantor: Abdulkadir Chau TypeRelation to PatientDate of BirthPhone Billing [id number]/14/1981 [address] [place] [address] Care Teams Team MemberRelationshipSpecialtyStart DateEnd Date Cehry Sampson DO [address] [place] [address] PCP - [facility]/08[facility]21 Aracelis Leiva, ARBEN [address] [facility] [address] [place] [address] Sleep Medicine12/23/24
[2025-07-12 11:57] VITALS: BP 120/81; PULSE 99; RESP 18; TEMP 36.8; O2SAT 98
--- NOTE | 2025-07-12 12:05 | ED_ITS ---
HPI - General Adult General Chief complaint: Chest Pain Stated complaint: Chest pain, +COVID Time Seen by Provider: 07/12/25 12:05 History of Present Illness HPI narrative: Patient -Present Problem Description Patient presents to the emergency department complaining of covid and chest pain. Pain has been going on for a couple of hours. Pain is in the center of his chest. Movement makes pain worse, reproduceable to with palpation. Patient test positive for covid yesterday . 44-year-old man presenting to the emergency department with concern of mid chest pain. Began a few hours ago. Thinks he began feeling sick about 3 days ago during [facility]. Apparently this is something he does regularly. Pack was rather light. No trauma experience during this time. Did test himself a couple of times yesterday at home testing positive for COVID. Has lost quite a bit of weight recently with a GLP 1 assistance. 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 Has not been coughing until this morning. Has measured temperature in his course up to a little over 101. Related Data Home Medications ?Medication ?Instructions ?Recorded ?Confirmed ferrous sulfate 325 mg (65 mg 325 mg PO DAILY 10/19/22 07/12/25 iron) tablet (FeroSul) metoprolol succinate 100 mg 100 mg PO DAILY 10/19/22 1 09/12/24 tablet,extended release 24 hr metformin 500 mg tablet,extended 500 mg PO DAILY 11/2207/12/25 release 24 hr tirzepatide (weight loss) 5 mg/0.5 5 mg subcut 5 02/28/25 mL subcutaneous pen injector (Zepbound) Previous Rx's ?Medication ?Instructions ?Recorded cyclobenzaprine 5 mg tablet 5 mg PO QHS PRN muscle spa sm #10 07/21/24 tabs valacyclovir 1 gram tablet 2,000 mg (2 x 1 gram) PO Q1 2H #4 11/22/24 (Valtrex) tabs diclofenac sodium 3 % topical gel 1 applic topical BID PRN #100 grams 07/12/25 Allergies Allergy/AdvReac Type Severity Reaction Status Date / Time banana Allergy Mild Anaphylaxis Verified 02/28/25 08:44 levofloxacin (From Levaquin) Allergy Mild tendon Verified 02/28/25 08:44 disinageration mold Allergy Mild Anaphylaxis Verified 02/28/25 08:44 Penicillins Allergy Mild Anaphylaxis Verified 02/28/25 08:44 amoxicillin Allergy Anaphylaxis Verified 02/28/25 08:44 ciprofloxacin Allergy Verified 02/28/25 08:44 Molds & Smuts Allergy Uncoded 02/28/25 08:44 Review of Systems Status of ROS: Reports: 6 or more systems reviewed and unremarkable except as noted in History and below [facility] Medical History Osteochondritis dissecans of right ankle ?M93.271 - Osteochondritis dissecans, right ankle and joints of right foot (ICD-10) Achilles tendinitis of both lower extremities ?M76.61 - Achilles tendinitis, right leg (ICD-10) ?M76.62 - Achilles tendinitis, left leg (ICD-10) Sacroiliac joint pain ?M53.3 - Sacrococcygeal disorders, not elsewhere classified (ICD-10) Palpitations ?R00.2 - Palpitations (ICD-10) Abdominal pain ?R10.9 - Unspecified abdominal pain (ICD-10) Surgical History History of repair of anterior cruciate ligament of right knee ?Z98.890 - Other specified postprocedural states (ICD-10) Social History Smoking Status: Never smoker Do you use any of these nicotine containing products: None Second hand tobacco smoke exposure: No How often do you have a drink containing alcohol: monthly or less How often do you have six or more drinks on one occasion: Never AUDIT-C Alcohol total score: 1 Non-prescribed substance use: denies use Exam Narrative: Exam Narrative: Pleasant. Looks a little uncomfortable. Subtle splinting I think at times with deep inspiratory effort. He is tender to light touch over the parasternal area centrally. Lungs are clear. Heart in elevated rate regular rhythm. Upper abdomen is soft nontender. No extremity edema. Const: Vital Signs, click to edit/add: Vital Signs - 24 hr 07/12/25 11:57 07/12/25 14:13 Temperature 98.2 F Pulse Rate [Right Pulse Oximeter] 99 99 Respiratory Rate 18 Blood Pressure [Ri ght Upper Arm] 120/81 Pulse Oximetry 98 95 Oxygen Delivery Me thod Room Air Room Air Documenting provider has reviewed patient's vital signs: yes Course Vital Signs Vital signs: Initial Vital Signs Temperature 98.2 F 07/12/25 11:57 Temperature Source Temporal Artery Scan 07/12/25 11:57 Pulse Rate 99 07/12/25 11:57 Pulse Rhythm Regular 07/12/25 11:57 Pulse Strength 3+ Normal 07/12/25 11:57 Respiratory Rate 18 07/12/25 11:57 Blood Pressure 120/81 07/12/25 11:57 Blood Pressure Mean 94 07/12/25 11:57 Blood Pressure Position Sitting 07/12/25 11:57 Pulse Oximetry 98 07/12/25 11:57 Oxygen Delivery Method Room Air 07/12/25 11:57 Vital Signs Temperature 98.2 F 07/12/25 11:57 Pulse Rate 99 07/12/25 11:57 Respiratory Rate 18 07/12/25 11:57 Blood Pressure 120/81 07/12/25 11:57 Pulse Oximetry 98 07/12/25 11:57 Oxygen Delivery Method Room Air 07/12/25 11:57 Temperature 98.2 F 07/12/25 11:57 Pulse Rate 99 07/12/25 14:13 Respiratory Rate 18 07/12/25 11:57 Blood Pressure 120/81 07/12/25 11:57 Pulse Oximetry 95 07/12/25 14:13 Oxygen Delivery Method Room Air 07/12/25 14:13 Medications Administered Medications: Discontinued Medications Generic Name Dose Route Start Last Admin Trade Name Katarzyna PRN Reason Stop Dose Admin Lidocaine 1 patch 07/12/25 14:02 07/12/25 14:06 Lidocaine 5% Patch TRANSDERMA 07/12/25 14:03 1 patch ONCE ONE Administration Protocol Medical Decision Making MDM Narrative Medical decision making narrative: Differential does include ischemic cardiovascular disease, musculoskeletal chest pain, pulmonary embolus, pneumothorax, pleuritis, subluxation of rib, cost ochondritis. I think most likely is chest wall pain of some form in the setting of COVID. Unlikely dissection. Pain is reproducible. I would check standard labs, EKG looking for evidence to prompt further evaluation. Monitor on classroom monitor. Labs are reassuring. No events on classroom monitor during time monitoring. With reproducible pain did opt to place a lidocaine patch on his chest. See patient discharge plan for further discussion Normally I would recommend a regularly dosed NSAID even just ibuprofen over the next 5 days or so, or prednisone. Given your restrictions, if this lidocaine patch is helpful, can purchase more [id number]; this just covers up pain; not treating the underlying presumed inflammation. Otherwise prescribing diclofenac gel as it sounds like this may have been helpful to you in the past. I would use it regularly over the next 5-7 days. Be seen for persistent increasing pain, worsening shortness of breath, inability to control fever. Nice chatting with you. Hope you can continue to explore. Happy holidays. Medical Records Medical records reviewed: Yes I reviewed the patient's medical records Lab Data Lab results reviewed: Yes I reviewed the patient's lab results Labs: Lab Results 07/12/25 07/12/25 Range/Units 12:24 12:45 D-Dimer Quant (PE/DVT) 0.23 (0.00-0.50) ug/ml Sodium 137 (135-149) mmol/L Potassium 4.2 (3.6-5.1) mmol/L Chloride 104 (96-114) mmol/L Carbon Dioxide 25 (20-32) mmol/L Anion Gap 8 (7-15) mEq/L BUN 15 (5-24) mg/dL Creatinine 0.9 (0.5-1.5) mg/dL Estimated GFR 109 ml/min Glucose 103 (60-115) mg/dL Calcium 9.2 (8.4-10.6) mg/dL POC Troponin I High Sensi < 2.9 L (2.9-28.0) pg/mL NT-Pro-B Natriuret Pep < 20 (See Note) pg/mL ECG Data Attestation: I personally reviewed and interpreted this ECG as follows: (Normal sinus rhythm. Rate of 86. No ischemic changes or evidence of underlying dysrhythmia. ) Discharge Plan Discharge Clinical Impression: Acute chest wall pain, Costochondritis, COVID-19 Patient Disposition: Home, Self-Care Condition: Stable Additional Instructions: Normally I would recommend a regularly dosed NSAID even just ibuprofen over the next 5 days or so, or prednisone. Given your restrictions, if this lidocaine patch is helpful, can purchase more [id number]; this just covers up pain; not treating the underlying presumed inflammation. Otherwise prescribing diclofenac gel as it sounds like this may have been helpful to you in the past. I would use it regularly over the next 5-7 days. Be seen for persistent increasing pain, worsening shortness of breath, inability to control fever. Nice chatting with you. Hope you can continue to explore. Happy holidays. Prescriptions: New diclofenac sodium 3 % gel 1 applic topical BID PRNQty: 100 1RF No Action metformin 500 mg tablet extended release 24 hr 500 mg PO DAILY valacyclovir [Valtrex] 1 gram tablet 2,000 mg PO Q12H Qty: 4 0RF Zepbound 5 mg/0.5 mL pen injector 5 mg subcut metoprolol succinate 100 mg tablet extended release 24 hr 100 mg PO DAILY ferrous sulfate [FeroSul] 325 mg (65 mg iron) tablet 325 mg PO DAILY cyclobenzaprine 5 mg tablet 5 mg PO QHS PRN (Reason: muscle spasm) Qty: 10 0RF Follow Up/Referrals: PRATEEK ROBERTS DO [Primary Care Provider, Family Practice] Stand Alone Forms: MyHealth Info Instructions
[2025-07-12 13:01] LABS: Chloride* 104 mmol/L (96-114); Potassium* 4.2 mmol/L (3.6-5.1); Sodium* 137 mmol/L (135-149)
[2025-07-12 13:04] LABS: Anion Gap 8 mEq/L (7-15); Blood Urea Nitrogen* 15 mg/dL (5-24); Carbon Dioxide* 25 mmol/L (20-32); Creatinine* 0.9 mg/dL (0.5-1.5); Estimated Glomerular Filt Rate 109 ml/min
[2025-07-12 13:05] LABS: Calcium* 9.2 mg/dL (8.4-10.6); Glucose* 103 mg/dL (60-115)
[2025-07-12 13:07] LABS: D Dimer Quantitative* 0.23 ug/ml (0.00-0.50)
[2025-07-12 13:16] LABS: NT Pro B Type NatriureticPept* < 20 pg/mL (See Note)
[2025-07-12] MEDS: LIDOCAINE 5% PATCH 1 PATCH TRANSDERMA (14:06)
[2025-07-12 14:13] VITALS: PULSE 99; O2SAT 95
== END 2025-07-12 14:13 | disposition home or self-care (01) ==
PROVIDERS: Emergency Provider Family Medicine; PCP Student in an Organized Health Care Education/Training Program
DX: U07.1 COVID-19 (principal); R07.89 Other chest pain; M94.0 Chondrocostal junction syndrome [Tietze]; Z79.85 Long-term (current) use of injectable non-insulin antidiabetic drugs
CPT/HCPCS: 36415; 80048; 83880; 84484; 85379; 93005; 99284; A9270